=== PATIENT | male | born 1965 | race Caucasian/White ===

== ENCOUNTER 2024-10-31 06:19 | Day surgery (SDC) | payer BC, SELFPAY ==
[2024-10-22 10:42] LABS: Hematocrit 46.7 % (39.0-52.0); Mean Corp Hgb Conc. 34.3 g/dL (33.0-37.0); Mean Corpuscular Volume 90.5 fL (80.0-94.0); Mean Platelet Volume 10.6 fL (7.4-10.4); Platelet Count 174 10^3/uL (130-400); Red Blood Cell Count 5.16 10^6/uL (4.70-6.10); White Blood Cell Count 5.2 10^3/uL (4.8-10.8)
[2024-10-22 13:53] VITALS: BMI 26.7
--- NOTE | 2024-10-22 14:49 | PTCARENOTE ---
Abn ECG, Dr. Quevedo notified, no new actions required.
[2024-10-31] VITALS (10 sets, daily range): BP systolic 129–152; BP diastolic 78–104; BMI 26.7
--- NOTE | 2024-10-31 07:01 | PTCARENOTE ---
Patient rates high as a DVT risk. Anesthesiologist aware.
[2024-10-31] MEDS: CELEBREX 200 MG PO (07:27)
[2024-10-31] MEDS: TYLENOL 1000 MG PO (07:27)
--- NOTE | 2024-10-31 07:32 | SUR.OPER ---
Patient ordered SCD by Anesthesia [facility].
--- NOTE | 2024-10-31 07:51 | SUR.OPER ---
Patient states that he did not get a sling/immobilizer prior to surgery today. Patient states that the office was told that he will be provided a sling here prior to discharge. OR front end manager and also Anesthesia made aware.
== END 2024-10-31 12:15 | disposition home or self-care (01) ==
LOC: SDS 06:19
PROVIDERS: ATTENDING PHYSICIAN Orthopaedic Surgery; FAMILY PHYSICIAN Nurse Practitioner Adult Health
PROC: 0LB14ZZ Excision of Right Shoulder Tendon, Percutaneous Endoscopic Approach (ICD-10-PCS; 2024-10-31)
DX: M75.111 Incomplete rotator cuff tear or rupture of right shoulder, not specified as traumatic (principal); I45.10 Unspecified right bundle-branch block
CPT/HCPCS: 29827; 36415; 85027; 93005; C1713

== ENCOUNTER → 2025-06-03 11:15 | Outpatient (REF) | payer BC, SELFPAY | LOC: RAD 11:15 | PROVIDERS: ATTENDING PHYSICIAN Nurse Practitioner Adult Health; FAMILY PHYSICIAN Internal Medicine | DX: R10.33 Periumbilical pain (principal); R14.0 Abdominal distension (gaseous); R10.31 Right lower quadrant pain | CPT/HCPCS: 74018; 76705 ==

== ENCOUNTER → 2025-06-16 15:09 | Outpatient (REF) | payer BC, SELFPAY | LOC: RAD 15:09 | PROVIDERS: ATTENDING PHYSICIAN Nurse Practitioner Adult Health | DX: R10.33 Periumbilical pain (principal); R10.31 Right lower quadrant pain; R19.7 Diarrhea, unspecified; R14.0 Abdominal distension (gaseous); R14.2 Eructation | CPT/HCPCS: 74177; Q9967 ==